=== PATIENT | female | born 1960 | race Caucasian/White ===

== ENCOUNTER → 2021-03-31 11:30 | Outpatient (BNVA) | payer BC, SELFPAY | PROVIDERS: PCP Family Medicine; Visit Provider Emergency Medicine | DX: Z20.822 Contact with and (suspected) exposure to COVID-19 (principal); J06.9 Acute upper respiratory infection, unspecified | CPT/HCPCS: 87426 ==

== ENCOUNTER 2024-07-17 15:52 | Emergency (ER) | payer BC, SELFPAY ==
--- NOTE | 2024-07-17 15:59 | XRR_ITS ---
PROCEDURE INFORMATION: Exam: XR Chest Exam date and time: 07/17/2024 4:47 PM Age: 64 years old Clinical indication: Other: High blood pressure; Additional info: HTN, high blood pressure, headache TECHNIQUE: Imaging protocol: Radiologic exam of the chest. Views: 1 view. COMPARISON: No relevant prior studies available. FINDINGS: Lungs: Unremarkable. No consolidation. Pleural spaces: Unremarkable. No pleural effusion. No pneumothorax. Heart/Mediastinum: Unremarkable. No cardiomegaly. Bones/joints: Unremarkable. XR/XR chest 1V portable [id number] IMPRESSION: No acute findings.
[2024-07-17 16:00] VITALS: BP 202/104; PULSE 61; RESP 17; TEMP 36.6; O2SAT 99; BMI 24.3
--- NOTE | 2024-07-17 16:32 | CTR_ITS ---
PROCEDURE INFORMATION: Exam: CT Head Without Contrast Exam date and time: 07/17/2024 4:43 PM Age: 64 years old Clinical indication: Pain; Headache; Vascular; Additional info: THAKUR TECHNIQUE: Imaging protocol: Computed tomography of the head without contrast. Radiation optimization: All CT scans at this facility use at least one of these dose optimization techniques: automated exposure control; mA and/or kV adjustment per patient size (includes targeted exams where dose is matched to clinical indication); or iterative reconstruction. COMPARISON: No relevant prior studies available. RADIATION DOSE METRICS: Total DLP (mGy-cm): 1012.68 FINDINGS: Brain: Normal. No hemorrhage. Unremarkable white matter. No mass effect. Cerebral ventricles: No ventriculomegaly. Paranasal sinuses: Visualized sinuses are unremarkable. No fluid levels. Mastoid air cells: Visualized mastoid air cells are well aerated. Bones: Unremarkable. No acute fracture. Soft tissues: Unremarkable. CT/CT head wo con* [id number] IMPRESSION: No acute intracranial abnormality.
--- NOTE | 2024-07-17 16:33 | W.ED.GENADLT ---
HPI - General Adult General: Chief complaint: General Medical Stated complaint: High BP Time Seen by Provider: 07/17/24 16:13 Source: patient Mode of arrival: ambulatory Limitations: no limitations History of Present Illness: 64-year-old female states she has been hypertensive today. States she takes lisinopril 2.5 mg twice daily states today she had had some mild headaches and blurred vision states it is currently resolved. She denies any chest pain or vomiting. She states she had went to clinic her blood pressure was over 200 and sent here. Associated symptoms: Reports headache(s); Deny chest pain, dyspnea, nausea, rash or vomiting Related Data Home Medications ?Medication ?Instructions ?Recorded ?Confirmed ascorbate calcium (vitamin C) 500 500 mg PO DAILY 06/07/24 07/17/24 mg tablet calcium carbonate (Calcium 600) 600 mg PO DAILY 06/07/24 07/17/24 coenzyme Q10 200 mg/gram oral mg PO 06/07/24 07/17/24 powder (H2Q CoQ10) lactobacillus combination no.9 4 4,000 mmu cells PO DAILY 06/07/24 07/17/24 billion cell capsule (Adult 50 Plus Probiotic) Previous Rx's ?Medication ?Instructions ?Recorded Synthroid 125 mcg tablet 125 mcg PO DAILY #90 tabs 06/07/24 (levothyroxine) lisinopril 2.5 mg tablet 2.5 mg PO BID #180 tabs 06/07/24 rosuvastatin 10 mg tablet 10 mg PO DAILY #90 tabs 06/07/24 Allergies Allergy/AdvReac Type Severity Reaction Status Date / Time Sulfa (Sulfonamide Allergy unk Verified 07/17/24 14:36 Antibiotics) Review of Systems Const: Denies: fever(s), chills, body aches or change in appetite Eyes: Denies: eye discomfort ENMT: Denies: throat pain or dental pain Card: Denies: chest pain Resp: Denies: dyspnea GI: Denies: abdominal pain, nausea, vomiting or diarrhea Musc: Denies: neck pain or back pain Skin/Breast: Denies: rash Neuro: Reports: headache(s) [facility] ED PFSH: Medical History Pulmonary nodule on CT 6.23; had f/u---need to get that CKD (chronic kidney disease) stage 2, GFR 60-89 ml/min has had US; sees 3rd mate once a year Hx of thyroid cancer Hypercholesteremia Coronary calcium score <100 6.23 Transient global amnesia 24hr episode 8.23.23--MRI head neg, sees [facility] yearly Hypertension, essential Surgical History Hx of colonoscopy with polypectomy 6.24.24 adenoma; repeat 5 yrs History of right breast biopsy benign H/O thyroidectomy for thyroid cancer and then had iodine ablation after H/O: hysterectomy ovaries remaining; done for prolapsed uterus Family History Mother Aneurysm, Onset Age: 77 cerebral Father Lung cancer copd Sister Cancer cholangiocarcinoma Social History Smoking and tobacco/nicotine status: never used tobacco/nicotine Alcohol intake: current Alcohol intake frequency: holidays/special occasions only Substance/Drug Use: never Household members: spouse Marital status: Number of children: 3 Highest education level completed: Other Doctoral Degree Education level details: PhD Current occupational status: retired Current occupation: retired; PhD project manager process development Physical Exam Const: COMMON NORMALS: no acute distress, patient oriented x3 and healthy appearing HENMT: COMMON NORMALS: normocephalic and atraumatic HEAD & SCALP: normocephalic and atraumatic Eye: COMMON NORMALS: Equal, round and reactive pupils present and EOMs intact bilaterally PUPIL: Yes Equal, round and reactive pupils present Neck/C-Spine: COMMON NORMALS: full ROM and supple Chest: COMMONS NORMALS: normal inspection of the chest and normal palpation of entire chest wall Resp: COMMON NORMALS: normal respiratory effort, No retractions, No use of accessory muscles and clear to auscultation bilaterally AUSCULTATION: clear to auscultation bilaterally Cardio: COMMON NORMALS: regular rate, regular rhythm and No murmurs present (Cardio) RATE: regular rate RHYTHM: regular rhythm GI: COMMON NORMALS: Normal to inspection, nondistended, normoactive bowel sounds present, Soft to palpation, non-tender and no masses PALPATION: Yes Soft to palpation Extremity: COMMON NORMALS: normal to inspection and full ROM Neuro: COMMON NORMALS: patient oriented x3, moves all extremities and no focal motor deficits Psych: COMMON NORMALS: mental status grossly normal, Normal thought process present and cooperative THOUGHT PROCESS: Normal thought process present Skin: COMMON NORMALS: no rashes or lesions noted and no wounds GENERAL SKIN EXAM: no rashes or lesions noted Course Vital Signs: Vital signs: Vital Signs Temperature 97.8 F 07/17/24 16:00 Pulse Rate 61 07/17/24 16:00 Respiratory Rate 17 07/17/24 16:00 Blood Pressure 202/104 07/17/24 16:00 Pulse Oximetry 99 07/17/24 16:00 Oxygen Delivery Me thod Room Air 07/17/24 16:00 MDM - General Adult Medical Decision Making Patient presents with hypertension her blood pressure here is improved she is asymptomatic here her only complaint was a mild headache head CT is normal blood works normal I informed her she needs to take a log of her blood pressure morning noon and night over the next week and follow-up with her PCP she is return if worsening she understands agrees to plan Medical Records I reviewed the patient's medical records. Lab Data I reviewed the patient's lab results. 07/17/24 16:10 07/17/24 16:10 Radiology Impressions Chest X-Ray 07/17/24 15:59 IMPRESSION: No acute findings. Head CT 07/17/24 16:32 IMPRESSION: No acute intracranial abnormality. Laboratory Results WBC 6.19 10^3/uL (3.29-11.43) 07/17/24 16:10 RBC 4.51 10^6/uL (3.85-5.65) 07/17/24 16:10 Hgb 13.60 g/dL (11.27-16.99) 07/17/24 16:10 Hct 41.8 % (36-47) 07/17/24 16:10 MCV 92.7 fl (85-98) 07/17/24 16:10 MCH 30.2 pg (27-33) 07/17/24 16:10 MCHC 32.5 g/dL (30-55) 07/17/24 16:10 RDW 12.1 % (12.1-15.1) 07/17/24 16:10 Plt Count 180 10^3/cmm (157-399) 07/17/24 16:10 MPV 10.8 fL (7.4-10.4) H 07/17/24 16:10 Neut % (Auto) 55.4 % 07/17/24 16:10 Lymph % (Auto) 37.0 % 07/17/24 16:10 [place] % (Auto) 5.2 % 07/17/24 16:10 Eos % (Auto) 1.0 % 07/17/24 16:10 Baso % (Auto) 1.1 % 07/17/24 16:10 Neut # (Auto) 3.43 10^3/uL (1.8-7.7) 07/17/24 16:10 Lymph # (Auto) 2.3 10^3/uL (0.8-4.8) 07/17/24 16:10 [place] # (Auto) 0.3 10^3/uL (0.2-0.9) 07/17/24 16:10 Eos # (Auto) 0.1 10^3/uL (0.0-0.8) 07/17/24 16:10 Baso # (Auto) 0.1 10^3/uL (0.0-0.1) 07/17/24 16:10 Nucleated RBC % (auto) 0 % 07/17/24 16:10 Nucleated RBCs # 0.0 /100WBC 07/17/24 16:10 Sodium 143 mmol/L (136-145) 07/17/24 16:10 Potassium 3.6 mmol/L (3.5-5.1) 07/17/24 16:10 Chloride 104 mmol/L (98-107) 07/17/24 16:10 Carbon Dioxide 27 mmol/L (22-29) 07/17/24 16:10 Anion Gap 15.6 (5-19) 07/17/24 16:10 BUN 16 mg/dL (8-23) 07/17/24 16:10 Creatinine 1.0 mg/dL (0.5-0.9) H 07/17/24 16:10 GFR Calculation 55.6 mL/min (90-130) L 07/17/24 16:10 Glucose 90 mg/dL (65-115) 07/17/24 16:10 Calculated Osmolality 297 mOsm/kg (285-295) H 07/17/24 16:10 Calcium 9.5 mg/dL (8.5-10.5) 07/17/24 16:10 Total Bilirubin 0.6 mg/dL (0.15-1.2) 07/17/24 16:10 AST 20 U/L (0-32) 07/17/24 16:10 ALT 14 U/L (0-33) 07/17/24 16:10 Alkaline Phosphatase 74 U/L (35-105) 07/17/24 16:10 Total Protein 7.8 g/dL (6.6-8.7) 07/17/24 16:10 Albumin 4.8 g/dL (3.5-5.2) 07/17/24 16:10 Globulin 3.0 g/dL (1.3-4.6) 07/17/24 16:10 All radiology interpretation(s) finalized by discharge EKG Data EKG 1: I personally reviewed and interpreted this EKG as follows: EKG interpretation date: 07/17/24 EKG interpretation time: 17:11 Interpretation: sinus tanvi hr [address] elevation qrs 87 qtc 429 Computer generated interpretation: Chest X-Ray 07/17/24 15:59 IMPRESSION: No acute findings. Head CT 07/17/24 16:32 IMPRESSION: No acute intracranial abnormality. Discharge Plan Discharge Patient Disposition: Home Clinical Impression: Hypertension, essential Condition: Stable Prescriptions: No Action calcium carbonate [Calcium 600] 600 mg calcium (1,500 mg) tablet 600 mg PO DAILY H2Q CoQ10 200 mg/gram powder PO Adult 50 Plus Probiotic 4 billion cell capsule 4,000 mmu cells PO DAILY Rx Instructions: administer with a meal ascorbate calcium (vitamin C) 500 mg tablet 500 mg PO DAILY lisinopril 2.5 mg tablet 2.5 mg PO BID Qty: 180 3RF rosuvastatin 10 mg tablet 10 mg PO DAILY Qty: 90 3RF levothyroxine [Synthroid] 125 mcg tablet 125 mcg PO DAILY Qty: 90 3RF Rx Instructions: Brand name Discharge Orders: Discharge ED (Routine); Ordered 07/17/24 Ordered By: Casey White Referrals: Kayla French MD [Primary Care Provider] - 4-7 days Discharge Diet: Advance as tolerated Discharge Activity: Resume usual activity Patient Instructions: Hypertension (ED) Print Language: Ukrainian Coding Level of Care Code ED Violent Crimes Detective for Chg Brianna
[2024-07-17 16:52] LABS: Basophils # 0.1 10^3/uL (0.0-0.1); Basophils % 1.1 %; Eosinophils # 0.1 10^3/uL (0.0-0.8); Hematocrit 41.8 % (36-47); Lymphocytes # 2.3 10^3/uL (0.8-4.8); Mean Corpuscular HGB Conc 32.5 g/dL (30-55); Mean Corpuscular Hemoglobin 30.2 pg (27-33); Mean Corpuscular Volume 92.7 fl (85-98); Mean Platelet Volume 10.8 fL (7.4-10.4); Monocytes # 0.3 10^3/uL (0.2-0.9); Monocytes % 5.2 %; Neutrophils # 3.43 10^3/uL (1.8-7.7); Neutrophils % 55.4 %; Nucleated Red Blood Cells % 0 %; Platelet Count 180 10^3/cmm (157-399); Red Blood Count 4.51 10^6/uL (3.85-5.65); Red Cell Distribution Width 12.1 % (12.1-15.1); White Blood Count 6.19 10^3/uL (3.29-11.43)
[2024-07-17] MEDS: hyDRALAzine 20 mg/mL INJ 1 mL 10 MG IVP (17:09)
--- NOTE | 2024-07-17 17:11 | ECG_ITS ---
[facility] Date: 2024-07[facility]17 Pat Name: Vivian Prater Department: Room: Gender: Female [employer] And [employer] Preparer: : 1960 Requested By: Casey White Order Number: [id number] Stephen MD: Josh Medel M.D. Measurements Intervals [place] Rate: 57 P: -2 FL: 155 QRS: 31 QRSD: 87 T: 80 QT: 434 QTc: 426 Interpretive Statements SINUS BRADYCARDIA POSSIBLE LEFT ATRIAL ENLARGEMENT [-0.1mV P-WAVE IN V1/V2] POSSIBLE LEFT VENTRICULAR HYPERTROPHY [VOLTAGE CRITERIA PLUS LAE OR QRS WIDENING] NONSPECIFIC ST & T-WAVE ABNORMALITY No previous ECG available for comparison Electronically Signed On 07-20-2024 19:14:33 CDT by Josh Medel M.D. [email or web address]
[2024-07-17 17:30] LABS: Alanine Aminotransferase 14 U/L (0-33); Albumin Level 4.8 g/dL (3.5-5.2); Alkaline Phosphatase 74 U/L (35-105); Anion Gap 15.6 (5-19); Aspartate Amino Transferase 20 U/L (0-32); Blood Urea Nitrogen 16 mg/dL (8-23); Calcium 9.5 mg/dL (8.5-10.5); Carbon Dioxide 27 mmol/L (22-29); Chloride 104 mmol/L (98-107); Creatinine Clr Calc Pharmacy 51.8713; Glomerular Filtration Rate 55.6 mL/min (90-130); Glucose 90 mg/dL (65-115); Osmolality Calculated 297 mOsm/kg (285-295); Potassium 3.6 mmol/L (3.5-5.1); Sodium 143 mmol/L (136-145); Total Bilirubin 0.6 mg/dL (0.15-1.2); Total Protein 7.8 g/dL (6.6-8.7)
[2024-07-17 18:03] VITALS: BP 134/81; PULSE 59; O2SAT 99
== END 2024-07-17 18:04 | disposition home or self-care (01) ==
PROVIDERS: Emergency Provider Emergency Medicine; PCP Family Medicine
DX: I12.9 Hypertensive chronic kidney disease with stage 1 through stage 4 chronic kidney disease, or unspecified chronic kidney disease (principal); N18.2 Chronic kidney disease, stage 2 (mild); Z85.850 Personal history of malignant neoplasm of thyroid
CPT/HCPCS: 36415; 70450; 71045; 80053; 85025; 93005; 96374; 99285; J0360

== ENCOUNTER → 2024-08-31 09:23 | Outpatient (BNVA) | payer BC, SELFPAY | PROVIDERS: PCP Family Medicine; Visit Provider Family Medicine | DX: Z85.850 Personal history of malignant neoplasm of thyroid (principal); E89.0 Postprocedural hypothyroidism | CPT/HCPCS: 84432; 84439; 84443; 84481; 86800 ==

== ENCOUNTER → 2024-09-20 09:08 | Outpatient (BNVA) | payer BC, SELFPAY | PROVIDERS: PCP Family Medicine; Visit Provider Family Medicine | DX: Z00.00 Encounter for general adult medical examination without abnormal findings (principal) | CPT/HCPCS: 80053; 80061; 85025 ==

== ENCOUNTER → 2024-11-06 11:08 | Outpatient (BNVA) | payer BC, SELFPAY | PROVIDERS: PCP Family Medicine; Visit Provider Family Medicine | DX: E89.0 Postprocedural hypothyroidism (principal) | CPT/HCPCS: 84439; 84481 ==

== ENCOUNTER → 2024-11-22 09:39 | Outpatient (BNVA) | payer BC, SELFPAY | PROVIDERS: PCP Family Medicine; Visit Provider Nurse Practitioner | DX: R50.9 Fever, unspecified (principal) | CPT/HCPCS: 87426 ==

== ENCOUNTER 2025-04-09 09:11 | Outpatient (CLI) | payer BC, SELFPAY ==
--- NOTE | 2025-04-09 09:19 | XR_ITS ---
WS: [id number] Exam: XR shoulder LT min 2V* [id number] Date/Time of Exam: 04/09/2025 9:19 AM Reason For Exam: L shoulder pain DLP: No acute fracture. Normal soft tissues. The joints are maintained. XR/XR shoulder LT min 2V* [id number] IMPRESSION: 1. Negative LEFT shoulder.
== END 2025-04-09 09:12 | disposition home or self-care (01) ==
PROVIDERS: PCP Family Medicine; Visit Provider Family Medicine
DX: M25.512 Pain in left shoulder (principal)
CPT/HCPCS: 73030

== ENCOUNTER 2025-05-06 08:28 | Outpatient (CLI) | payer BC, SELFPAY ==
--- NOTE | 2025-05-06 08:45 | MR_ITS ---
WS: [id number] MRI LEFT SHOULDER HISTORY: L shoulder pain COMPARISON: Radiograph 04/27/2025 TECHNIQUE: Multiplanar sequences of the shoulder joint are submitted. Narrowing of the AC joint with hypertrophic osteophytes. Mild synovitis around the AC joint. Small amount of fluid in the subacromial and subdeltoid bursa. No significant subacromial impingement. No os acromion. Normal position of the biceps tendon with mild tenosynovitis. Normal glenohumeral joint. No high riding of the humeral head. No muscle atrophy or edema. Very short segment tear in the distal supraspinatus tendon with adjacent tendinopathy. No retraction of the tendon. Infraspinatus and subscapularis tendons are intact. Small amount of fluid in the subscapularis r ecess. Intermediate signal seen on several of the sequences near the rotator cuff interval of uncertain etiology. This area of abnormal signal measures approximately 5 mm and may be a bone fragment or loose body. There is a small amount of adjacent fluid. MR/MR shoulder LT wo con* [id number] IMPRESSION: 1. Mild AC joint arthritis with synovitis. 2. Small amount of fluid in the subacromial subdeltoid bursa. 3. Very short segment tear in the distal supraspinatus tendon with adjacent te ndinopathy. No retraction of the tendon. 4. Intermediate signal focus near the rotator cuff interval measuring 5 mm. So urce is not determined. This may be a small loose body, consider fragment of gregg ne or cartilage.
== END 2025-05-06 08:29 | disposition home or self-care (01) ==
PROVIDERS: PCP Family Medicine; Visit Provider Family Medicine
DX: M19.012 Primary osteoarthritis, left shoulder (principal); M65.812 Other synovitis and tenosynovitis, left shoulder; R93.89 Abnormal findings on diagnostic imaging of other specified body structures; M75.112 Incomplete rotator cuff tear or rupture of left shoulder, not specified as traumatic; M25.712 Osteophyte, left shoulder
CPT/HCPCS: 73221